=== PATIENT | male | born 1985 | race Caucasian/White ===

== ENCOUNTER 2020-11-22 02:03 | Emergency (ER) | payer SELFPAY ==
[~2020-11-22] VITALS: Ht 167.6 cm; Wt 63.1 kg
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
--- NOTE | 2020-11-22 02:24 | NUR ---
Patient also admits to meth use daily. Last use was earlier today during daylight.
[2020-11-22] MEDS ORDERED: ACETAMINOPHEN 500 MG TABLET PO ONE (02:30)
[2020-11-22] MEDS ORDERED: ACETAMINOPHEN 500 MG TABLET ONE (02:42)
--- NOTE | 2020-11-22 02:45 | NUR ---
PATIENT MEDICATED PER [facility]
--- NOTE | 2020-11-22 02:50 | NUR ---
PATIENT TO CT
--- NOTE | 2020-11-22 03:10 | NUR ---
PATIENT RETURN FROM CT
--- NOTE | 2020-11-22 03:53 | NUR ---
Patient sleeping on gurney, wakes easily with verbal stimuli. Awaiting CT results. NAD at this time. TM
--- NOTE | 2020-11-22 05:34 | NUR ---
Patient sleeping on gurney, wakes easily with verbal stimuli. NAD at this time. WCTM
[2020-11-22 06:02] VITALS: BP 108/63
--- NOTE | 2020-11-22 06:28 | NUR ---
Patient given discharge instructions and they have confirmed that they understand the instructions. Patient ambulatory with steady gait. NAD, all questions answered appropriately, denies additional needs at this time. No personal belongings left in room after discharge.
== END 2020-11-22 06:31 | disposition home or self-care (01) ==
LOC: ED 06:24
DX: S06.0X0A Concussion without loss of consciousness, initial encounter (principal); S02.118A Other fracture of occiput, unspecified side, initial encounter for closed fracture; F17.200 Nicotine dependence, unspecified, uncomplicated; Y04.0XXA Assault by unarmed brawl or fight, initial encounter; Y93.89 Activity, other specified; Y92.410 Unspecified street and highway as the place of occurrence of the external cause; Y99.8 Other external cause status
CPT/HCPCS: 70450; 70486; 72125; 99285